=== PATIENT | female | born 1955 | race Caucasian/White ===

== ENCOUNTER 2016-07-26 09:44 | Observation (INO) | payer MEDICAID, MEDICARE ==
[2016-07-26 10:12] LABS: Hematocrit 44 % (35-47); Hemoglobin 14.1 g/dl (12.0-16.0); Mean Corpuscular HGB Conc 32 g/dl (31-36); Mean Corpuscular Hemoglobin 25 pg (27-31); Mean Corpuscular Volume 80 fL (80-97); Mean Platelet Volume 9 um3 (7.4-10.4); Red Blood Count 5.54 10^6/ul (4.0-5.4); Red Cell Distribution Width 20 % (10.5-15); White Blood Count 9.9 10^3/ul (3.5-10.8)
[2016-07-26 10:25] LABS: Albumin 4.1 g/dL (3.2-5.2); BUN/Creatinine Ratio 15.3 (8-20); C Reactive Protein 6.31 mg/L (< 5.00); EGFR African American 134.2 (>60); EGFR Non-African American 104.3 (>60); Globulin 3.1 g/dL (2-4); Magnesium 1.7 mg/dL (1.9-2.7); Potassium 3.8 mmol/L (3.5-5.0); Total Bilirubin 0.5 mg/dL (0.2-1.0); Total Protein 7.2 g/dL (6.4-8.9)
[2016-07-26 10:26] LABS: Troponin I 0.01 ng/mL (<0.04)
[2016-07-26] MEDS: NS 0.9% 1000 ML* 1,000 ML IV SCH ×3 (10:26→21:22)
--- NOTE | 2016-07-26 10:33 | RAD ---
HISTORY: Chest pain COMPARISONS: November 30, 2015 VIEWS:1: Single frontal portable view of the chest at 10:04 AM FINDINGS: LINES AND TUBES: None. CARDIOMEDIASTINAL SILHOUETTE: The cardiomediastinal silhouette is normal for portable technique. PLEURA: The costophrenic angles are sharp. No pleural abnormalities are noted. LUNG PARENCHYMA: The lungs are clear. ABDOMEN: The upper abdomen is clear. There is no subphrenic gas. BONES AND SOFT TISSUES: The patient is status post median sternotomy. IMPRESSION: NO ACTIVE CARDIOPULMONARY DISEASE.
[2016-07-26] MEDS ORDERED: Morphine INJ* 2 MG/ML 1 ML SYRINGE IV PRN (10:51)
[2016-07-26] MEDS ORDERED: Temazepam CAP* 15 MG PO PRN (10:51)
[2016-07-26] MEDS ORDERED: Acetaminophen TAB* 325 MG PO PRN (10:51)
[2016-07-26 11:03] LABS: TSH (Thyroid Stimulating Horm) 2.55 mcIU/mL (0.34-5.60)
[2016-07-26] MEDS ORDERED: Magnesium Sulfate 1 GM IV* 1 GM/100 ML BAG IV ONE (11:21)
[2016-07-26] MEDS ORDERED: Dextrose 50% Syringe 50 ML* 25 GM/50 ML SYRINGE IV PUSH PRN (11:23)
[2016-07-26] MEDS: Insulin LISPRO* 1 UNITS UNIT SUBCUT SCH ×3 (11:32→21:07)
[2016-07-26] MEDS: Aspirin TAB* 325 MG PO SCH (11:41)
--- NOTE | 2016-07-26 12:51 | ECHO ---
Patient: JEN LOPE[facility] Rec#: [id number] : 1955 Date: 07/26/2016 Age: 60y Height: 162.56 cm / 64.0 in Weight: 82.55 kg / 181.9 lbs Sex: F BSA: 1.88 Room#: ED 14 Admit Date#: 07/26/2016 Type: Inpatient Referring: Hannah Gonsalez MD Reading: Trace Park MD Auto Porter: Gabrielle Bhagat,ELENITACS,RDMS CC: Henry Cardenas MD CC: Pam Gray MD Transthoracic Echocardiogram Indication: CP BP: 105/70 HR: 57 Rhythm: Bradycardia Indications Chest Pain Findings History: CAD, PCI, HCM, DM HTN, HLD, septal myomectomy. Technical Comments: The study is technically limited due to the patient's smoking history. Completed 1215 Left Ventricle: The left ventricular chamber size is normal. Mild to moderate concentric left ventricular hypertrophy is observed. Basal interventricular septum shows moderate thickening. Mild assymetric hypertrophy of the septum is noted. Mild increased velocity (1.52 m/s) is seen. There is normal left ventricular systolic function. The estimated ejection fraction is 50-55%. Ventricular septal wall motion has a post-operative appearance. The assessment of diastolic function is non-diagnostic. Left Atrium: The left atrium is moderately dilated. Right Ventricle: The right ventricular cavity size is normal. The right ventricular global systolic function is mildly reduced. Right Atrium: The right atrial cavity size is normal. Aortic Valve: The aortic valve is trileaflet. The aortic valve leaflets are mildly thickened. There is a trace of aortic regurgitation. There is borderline aortic stenosis present. The mean gradient of the aortic valve is 6.4 mmHg. The aortic valve area, by peak velocities, is calculated at 2.6 cm2. Mitral Valve: There is mitral annular calcification. The mitral valve leaflets are mildly thickened. There is a trace of mitral regurgitation. There is no evidence of mitral stenosis. Tricuspid Valve: The tricuspid valve leaflets are normal. There is trace tricuspid regurgitation. Unable to estimate the right ventricular systolic pressure. Pulmonic Valve: The pulmonic valve appears normal. There is a trace pulmonic regurgitation. Pericardium: There is no significant pericardial effusion. Aorta: The aortic root appears normal. There is no dilatation of the aortic arch. Pulmonary Artery: The main pulmonary artery appears normal. Venous: The inferior vena cava appears normal in size. There is an approximate 50% respiratory change in the inferior vena cava dimension. Conclusions Mild to moderate concentric left ventricular hypertrophy is observed. Basal interventricular septum shows moderate thickening. Mild assymetric hypertrophy of the septum is noted. The estimated ejection fraction is 50-55%. Ventricular septal wall motion has a post-operative appearance. The left atrium is moderately dilated. No significant valvular disease: There is borderline aortic stenosis present. The aortic valve area, by peak velocities, is calculated at 2.6 cm2. There is a trace of mitral regurgitation. There is trace tricuspid regurgitation. Unable to estimate the right ventricular systolic pressure. There is a trace pulmonic regurgitation. Compared to report of study from 04/13/2016 the septal wall thickness is relatively unchanged. No significant outflow gradient is seen. The doppler information is not consistent with a specific grade. Measurements Name Value Normal Range RVIDd (AP) 2D 2.9 cm (0.9 - 2.6) RVDdMajor (2D) 4.1 cm (2.2 - 4.4) RAd ISD 4CH 4.6 cm (3.4 - 4.9) RA (A4C)W 4.6 cm (2.9 - 4.6) IVSd (2D) 1.5 cm (0.6 - 1) LVPWd (2D) 1.2 cm (0.6 - 1) LVIDd (2D) 4.5 cm (3.6 - 5.4) LVIDs (2D) 2.9 cm - LV FS (2D) 35 % (25 - 45) Aortic Annulus 2 cm (1.4 - 2.6) Ao root diameter (2D) 3.5 cm (2.1 - 3.5) Ascending Ao 3.1 cm (2.1 - 3.4) Aortic arch 2.5 cm (1.8 - 3.4) LA dimension (AP) 2D 5 cm (2.3 - 3.8) LAd ISD 4CH 5.9 cm (2.9 - 5.3) LA ISD 4CH W 5 cm (2.5 - 4.5) Name Value Normal Range LA ESV SP 4CH (A/L) 85.22 ml - LA ESV SP 2CH (A/L) 85.35 ml - LA ESV BP (A/L) 86.27 ml - LA ESV BP (A/L) index 46 ml/m2 - LA ESV SP 4CH (MOD) 80.64 ml - LA ESV SP 2CH (MOD) 76.62 ml - Name Value Normal Range MV E-wave Vmax 0.9 m/sec - MV deceleration time 258 msec - MV A-wave Vmax 1 m/sec - MV E:A ratio 0.9 ratio - P. vein S-wave Vmax 0.8 m/sec - P. vein D-wave Vmax 0.5 m/sec - P. vein A-wave duration 80 msec - LV septal e' Vmax 0.05 m/sec - LV lateral e' Vmax 0.05 m/sec - LV E:e' septal ratio 18 ratio - LV E:e' lateral ratio 18 ratio - Name Value Normal Range AV Vmax 1.8 m/sec - AV VTI 34.2 cm - AV peak gradient 13 mmHg - AV mean gradient 6.4 mmHg - LVOT diameter 2 cm - LVOT Vmax 1.5 m/sec - LVOT VTI 31.6 cm - LVOT peak gradient 9 mmHg - LVOT mean gradient 4.9 mmHg - JUMANA (continuity Vmax) 2.6 cm2 - JUMANA (continuity VTI) 3 cm2 - GRISELDA Vmax 1.1 m/sec - Name Value Normal Range RAP 8 mmHg - IVC diameter 1.3 cm - Name Value Normal Range PV Vmax 0.8 m/sec - PV peak gradient 2.6 mmHg -
[2016-07-26] MEDS: Heparin VIAL(*) 5000 UNITS/ML VIAL (FIVE THOUSAND) SUBCUT SCH ×2 (13:46→21:20)
--- NOTE | 2016-07-26 14:36 | ED ---
Mannie Pete Auryana, scribed for Desmond Peacock MD on 07/26/16 at 1014 . HPI Chest Pain - HPI Summary HPI Summary: 60 year old female LEON with chest pain (4/10) starting yesterday after working outside (14:00) worse since cardiac rehab this morning while biking. She reports the chest pain as a dull pain. She states that while at cardiac rehab this morning she had increased pain (5/10) with bilateral upper extremity heaviness and SOB. She denies any nausea, diaphoresis or any edema. HAY FARMER 324 mg ASA and 2 NTG - pain now resolved. She is on Brilinta. 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 PMHx is significant for extensive cardiac problems: heart murmur, hypertrophic cardiomyopathy (2015), CAD, HTN, stent placement (August 2015). No history of DVT/PE. - History of Current Complaint Chief Complaint: EDChestPainROMI Time Seen by Provider: 07/26/16 09:53 Hx Obtained From: Patient Onset/Duration: Started Days Ago - yesterday at 14:00, Still Present, Worse Since - this morning at cardiac rehab Time of Onset: 14:00 - yesterday Timing: Constant - but now resolved Initial Severity: Mild Current Severity: None Pain Intensity: 0 - pain resolved Pain Scale Used: 0-10 Numeric Chest Pain Location: Diffuse Character: Dull/Aching Aggravating Factor(s): Exertion - at cardiac rehab Alleviating Factor(s): NTG 123 Associated Signs and Symptoms: Positive: Shortness of Breath, Other: - BILATERAL ARM HEAVINESS. Negative: Diaphoresis, Nausea, Edema - Additional Pertinent History Primary Care Physician: DARIN - Allergy/Home Medications Allergies/Adverse Reactions: Allergies Allergy/AdvReac Type Severity Reaction Status Date / Time Sulfa Antibiotics Allergy Hives Verified 07/26/16 10:11 PMH/Surg Hx/FS Hx/Imm Hx Endocrine/Hematology History: Reports: Hx Diabetes Cardiovascular History: Reports: Hx Angina, Hx Cardiomegaly - obstructive hypertrophic cardiomyopathy, Hx Coronary Artery Disease, Hx Hypercholesterolemia , Hx Hypertension, Hx Myocardial Infarction - Stent placement August,, Hx Valvular Heart Disease, Other Cardiovascular Problems/Disorders - stent placed Denies: Hx Congestive Heart Failure Respiratory History: Denies: Hx Asthma, Hx Chronic Obstructive Pulmonary Disease (COPD) GI History: Reports: Hx Gall Bladder Disease - gall bladder removed, Hx Gastroesophageal Reflux Disease History: Denies: Hx Dialysis, Hx Renal Disease Musculoskeletal History: Reports: Hx Arthritis - right knee Sensory History: Reports: Hx Contacts or Glasses - Reading Opthamlomology History: Reports: Hx Contacts or Glasses - Reading Neurological History: Reports: Hx Headaches - Surgical History Surgery Procedure, Year, and Place: TEE. carpal tunnel. arthroscopy R knee x2 - Immunization History Date of Tetanus Vaccine: remote Date of Influenza Vaccine: 2014 Infectious Disease History: No Infectious Disease History: Denies: Traveled Outside the [place] in Last 30 Days - Family History Known Family History: Positive: Cardiac Disease - both parents, Other - leukemia - Social History Occupation: Retired Lives: With Family Alcohol Use: None Substance Use Type: Reports: None Smoking Status (MU): Light Every Day Tobacco Smoker Type: Cigarettes Amount Used/How Often: 1/2 ppd or less Length of Time of Smoking/Using Tobacco: 27 years Have You Smoked in the Last Year: Yes Review of Systems Constitutional: Negative Negative: Skin Diaphoresis Eyes: Negative ENT: Negative Positive: Chest Pain Positive: Shortness Of Breath Gastrointestinal: Negative Negative: Nausea Genitourinary: Negative Positive: Other - BILATERAL ARM HEAVINESS. Negative: Edema Skin: Negative Neurological: Negative Psychological: Normal All Other Systems Reviewed And Are Negative: Yes Physical Exam Triage Information Reviewed: Yes Vital Signs On Initial Exam: Initial Vitals Temp Pulse Resp BP Pulse Ox 98.4 F 64 16 124/72 98 07/26/16 09:46 07/26/16 09:46 07/26/16 09:46 07/26/16 09:46 07/26/16 09:46 Vital Signs Reviewed: Yes Appearance: Positive: Well-Appearing, No Pain Distress Skin: Positive: Warm, Skin Color Reflects Adequate Perfusion, Dry Head/Face: Positive: Normal Head/Face Inspection Eyes: Positive: EOMI, PAYAM ENT: Positive: Normal ENT inspection Neck: Positive: Supple, Nontender Respiratory/Lung Sounds: Positive: Clear to Auscultation, Breath Sounds Present Cardiovascular: Positive: RRR, Murmur. Negative: Leg Edema Left, Leg Edema Right Abdomen Description: Positive: Nontender, Soft Bowel Sounds: Positive: Present Musculoskeletal: Positive: Normal, Strength/ROM Intact. Negative: Edema Left, Edema Right Neurological: Positive: Normal, Sensory/Motor Intact, Alert, Oriented to Person Place, Time Psychiatric: Positive: Affect/Mood Appropriate Diagnostics - Vital Signs Vital Signs Temp Pulse Resp BP Pulse Ox 07/26/16 09:47 98.4 F 63 16 115/70 100 07/26/16 09:46 98.4 F 64 16 124/72 98 - Laboratory Lab Results: Lab Results 07/26/16 07/26/16 07/26/16 Range/Units 09:56 09:56 09:56 WBC 9.9 (3.5-10.8) 10^3/ul RBC 5.54 H (4.0-5.4) 10^6/ul Hgb 14.1 (12.0-16.0) g/dl Hct 44 (35-47) % MCV 80 (80-97) fL MCH 25 L (27-31) pg MCHC 32 (31-36) g/dl RDW 20 H (10.5-15) % Plt Count 271 (150-450) 10^3/ul MPV 9 (7.4-10.4) um3 Neut % (Auto) 63.8 (38-83) % Lymph % (Auto) 29.1 (25-47) % [place] % (Auto) 4.2 (1-9) % Eos % (Auto) 2.0 (0-6) % Baso % (Auto) 0.9 (0-2) % Absolute Neuts (auto) 6.3 (1.5-7.7) 10^3/ul Absolute Lymphs (auto) 2.9 (1.0-4.8) 10^3/ul Absolute Monos (auto) 0.4 (0-0.8) 10^3/ul Absolute Eos (auto) 0.2 (0-0.6) 10^3/ul Absolute Basos (auto) 0.1 (0-0.2) 10^3/ul Absolute Nucleated RBC 0.01 10^3/ul Nucleated RBC % 0.1 INR (Anticoag Therapy) (0.89-1.11) APTT (26.0-36.3) seconds D-Dimer, Quantitative (Less Than 230) ng/mL Sodium 135 (133-145) mmol/L Potassium 3.8 (3.5-5.0) mmol/L Chloride 103 (101-111) mmol/L Carbon Dioxide 25 (22-32) mmol/L Anion Gap 7 (2-11) mmol/L BUN 9 (6-24) mg/dL Creatinine 0.59 (0.51-0.95) mg/dL Est GFR ( Amer) 134.2 (>60) Est GFR (Non-Af Amer) 104.3 (>60) BUN/Creatinine Ratio 15.3 (8-20) Glucose 123 H (70-100) mg/dL Lactic Acid 1.9 (0.5-2.0) mmol/L Calcium 10.0 (8.6-10.3) mg/dL Magnesium 1.7 L (1.9-2.7) mg/dL Total Bilirubin 0.50 (0.2-1.0) mg/dL AST 14 (13-39) U/L ALT 11 (7-52) U/L Alkaline Phosphatase 100 (34-104) U/L Total Creatine Kinase 88 (10-223) U/L CK-MB (CK-2) 4.3 (0.6-6.3) ng/mL Troponin I 0.01 (<0.04) ng/mL C-Reactive Protein 6.31 H (< 5.00) mg/L B-Natriuretic Peptide ( - 100) pg/mL Total Protein 7.2 (6.4-8.9) g/dL Albumin 4.1 (3.2-5.2) g/dL Globulin 3.1 (2-4) g/dL Albumin/Globulin Ratio 1.3 (1-3) Lipase 21 (11.0-82.0) U/L TSH 2.55 (0.34-5.60) mcIU/mL 07/26/16 07/26/16 Range/Units 09:56 09:56 WBC (3.5-10.8) 10^3/ul RBC (4.0-5.4) 10^6/ul Hgb (12.0-16.0) g/dl Hct (35-47) % MCV (80-97) fL MCH (27-31) pg MCHC (31-36) g/dl RDW (10.5-15) % Plt Count (150-450) 10^3/ul MPV (7.4-10.4) um3 Neut % (Auto) (38-83) % Lymph % (Auto) (25-47) % [place] % (Auto) (1-9) % Eos % (Auto) (0-6) % Baso % (Auto) (0-2) % Absolute Neuts (auto) (1.5-7.7) 10^3/ul Absolute Lymphs (auto) (1.0-4.8) 10^3/ul Absolute Monos (auto) (0-0.8) 10^3/ul Absolute Eos (auto) (0-0.6) 10^3/ul Absolute Basos (auto) (0-0.2) 10^3/ul Absolute Nucleated RBC 10^3/ul Nucleated RBC % INR (Anticoag Therapy) 0.98 (0.89-1.11) APTT 30.3 (26.0-36.3) seconds D-Dimer, Quantitative < 200 (Less Than 230) ng/mL Sodium (133-145) mmol/L Potassium (3.5-5.0) mmol/L Chloride (101-111) mmol/L Carbon Dioxide (22-32) mmol/L Anion Gap (2-11) mmol/L BUN (6-24) mg/dL Creatinine (0.51-0.95) mg/dL Est GFR ( Amer) (>60) Est GFR (Non-Af Amer) (>60) BUN/Creatinine Ratio (8-20) Glucose (70-100) mg/dL Lactic Acid (0.5-2.0) mmol/L Calcium (8.6-10.3) mg/dL Magnesium (1.9-2.7) mg/dL Total Bilirubin (0.2-1.0) mg/dL AST (13-39) U/L ALT (7-52) U/L Alkaline Phosphatase (34-104) U/L Total Creatine Kinase (10-223) U/L CK-MB (CK-2) (0.6-6.3) ng/mL Troponin I (<0.04) ng/mL C-Reactive Protein (< 5.00) mg/L B-Natriuretic Peptide 47 ( - 100) pg/mL Total Protein (6.4-8.9) g/dL Albumin (3.2-5.2) g/dL Globulin (2-4) g/dL Albumin/Globulin Ratio (1-3) Lipase (11.0-82.0) U/L TSH (0.34-5.60) mcIU/mL Result Diagrams: 07/26/16 09:56 07/26/16 09:56 Lab Statement: Any lab studies that have been ordered have been reviewed, and results considered in the medical decision making process. - Radiology CXR Xray Interpretation: No Acute Changes Radiology Interpretation Completed By: Radiologist - EKG 09:42 EKG Interpretation: sinus rhythm @ 65 BPM, LBBB, no significant change from 11/29 EKG Comparison: No Significant Change - from EKG 11/30/15 Chest Pain Course/Dx - Course Course Of Treatment: NO CRITICAL CARE TIME Assessment/Plan: ADMIT HOSPITALIST STABLE - Diagnoses Provider Diagnoses: Chest pain - Provider Notifications Discussed Care Of Patient With: Dr. Gonsalez Time Discussed With Above Provider: 10:34 - agrees to admit Discharge - Discharge Plan Condition: Stable Disposition: ADMITTED TO [facility] The documentation as recorded by the Mannie dickinson Auryana accurately reflects the service I personally performed and the decisions made by me, Desmond Peacock MD.
[2016-07-26] MEDS ORDERED: amLODIPine TAB* 5 MG PO SCH (18:00)
[2016-07-26] MEDS ORDERED: Atorvastatin* 80 MG TAB PO SCH (18:00)
--- NOTE | 2016-07-26 20:25 | HP ---
HISTORY AND PHYSICAL: DATE OF ADMISSION: 07/26/16 PRIMARY CARE PROVIDER: Dr. Pam Gray. CHIEF COMPLAINT: Chest pain. HISTORY OF PRESENT ILLNESS: Corrina Terry is a 60-year-old female with history of hypertrophic cardio-myopathy, status post septal myectomy at [facility] in February 2016, as well as coronary artery disease, status post stent placement into mid LAD in August of 2015, who currently is undergoing cardiac rehab. The patient developed today chest pain while undergoing cardiac rehab on a treadmill. She stated that she felt chest heaviness and bilateral arms were very heavy. That resolved after she received nitroglycerin in the emergency department. Yesterday, she also was cleaning the house and complained of similar chest heaviness. At that point, she did not have bilateral arm pain. The discomfort was at 4/10 in intensity, loosened somewhat after she discontinued her exercise but was still present when she was going to sleep. Today, in the morning, she felt like the pain was resolved, but that recurred after she started undergoing cardiac rehab. She presented to the ED. Her initial troponin is unremarkable and her EKG is unchanged but with chronic left bundle branch block. The patient is going to be placed on observation with diagnosis of chest pain to rule out angina. PAST MEDICAL HISTORY: 1. Septal hypertrophic myopathy, status post septal myectomy in [facility] on 02/18/16. 2. History of hypertension. 3. Dyslipidemia. 4. Diabetes, type 2. 5. Left ear deafness. 6. Vitamin D deficiency. 7. Gastroesophageal reflux disease. 8. Coronary artery disease as mentioned above, status post cardiac cath and stent in the mid LAD in August of 2015. 9. History of ear drum perforation in April 2016. 10. Cholecystectomy in 1981. 11. Carpal tunnel release in 1995 and 1999. 12. Knee surgery on the right, twice in the past. 13. Perioperative septal myectomy. The patient developed atrial fibrillation and was transiently on amiodarone. The patient's most recent cardiac stress test in November of 2015 was low risk. MEDICATIONS: Include: 1. Lipitor 80 mg daily. 2. Brilinta 90 mg b.i.d. 3. Omeprazole 20 mg daily. 4. Metformin 1000 mg b.i.d. 5. Vitamin B12 1000 mcg monthly injection. 6. Aspirin 81 mg daily. 7. Metoprolol tartrate 25 mg b.i.d. 8. Oxycodone on p.r.n. basis. ALLERGIES: SULFA ANTIBIOTICS. FAMILY HISTORY: Positive for father who at the age of 64 with leukemia, but also had history of heart disease. Mother who at age of 82 with history of coronary artery disease. The patient's one sister had diabetes, one unknown cancer. Brother with history of three MIs and leukemia. SOCIAL HISTORY: The patient is a former smoker. She denies any alcohol or drug use. She lives with son, Brandon Grady, who is her healthcare proxy. REVIEW OF SYSTEMS: Please see history of present illness. All the remaining 14 systems reviewed were otherwise negative. PHYSICAL EXAMINATION GENERAL: The patient is a very pleasant 60-year-old female, who is in no acute distress. The patient is alert, awake, and oriented x3. VITAL SIGNS: Blood pressure of 105/70, heart rate of 62 and regular, respiratory rate 16, oxygen saturation 100% on room air, temperature 98.4. HEENT: Head: Atraumatic, normocephalic. Eyes: Pupils equal and reactive to light and accommodation. Oropharynx clear. Mucosa moist. NECK: Supple. No JVD. No bruits bilaterally. RESPIRATORY: Clear to auscultation bilaterally. HEART: Regular rate and rhythm with 2/6 systolic ejection murmur at the left upper sternal border. ABDOMEN: Soft, nontender. Bowel sounds present in all 4 quadrants. EXTREMITIES: There is no edema. Pulses 2+ bilaterally. There is no clubbing or cyanosis. NEURO: Speech clear. Cranial nerves II through XII grossly intact. Motor strength is 5/5 bilaterally. SKIN: On evaluation of the skin, no ecchymotic areas noted. DIAGNOSTIC STUDIES/LAB DATA: Showed white blood cell count of 9.9, hemoglobin of 14.1, hematocrit of 44, and platelets of 271. Sodium is 135, potassium 3.8, chloride 103, carbon dioxide 25, BUN 9, creatinine 0.59. Liver function tests were unremarkable. Magnesium of 1.7. TSH of 2.5. The patient's EKG showed known left bundle branch block. Portable chest x-ray, impression: "No active cardiopulmonary disease." The patient's troponin was 0.01. ASSESSMENT AND PLAN: A 60-year-old female with history of septal myectomy and history of coronary artery disease and hypertrophic cardiomyopathy, who presents with exertional chest pain. I curb-sided Dr. Toney in regards to this patient. This patient has exertional chest pain. Dr. Toney recommended that if troponins continued to be negative, the patient is to undergo a cardiac stress test. We will continue to observe the patient on telemetry monitored bed and if troponins continued to be negative, she is going to be placed on treadmill Myoview stress test in the morning. In regards to the patient's dyslipidemia, fasting lipid profile is going to be obtained in the morning. For hypertension, her beta marsha and Norvasc are going to be continued. For diabetes, insulin sliding scale is going to be continued. I will hold the patient's metformin while in the hospital. For gastroesophageal reflux disease, omeprazole is going to be continued. For DVT prophylaxis, the patient is in moderate risk and is going to be placed on heparin subcutaneously. Code status is full. TIME SPENT: Approximately 62 minutes was spent on admission of this patient, more than half that time was spent [id number] with the patient during the interview and physical exam. CC: Dr. Toney; Dr. Cardenas; Dr. Pam Gray* [id number]/[facility] #: [id number] MTDD
[2016-07-26] MEDS: Ticagrelor* 90 MG TAB PO SCH (21:20)
[2016-07-27] MEDS: NS 0.9% 1000 ML* 1,000 ML IV SCH (04:11)
[2016-07-27 05:05] LABS: HDL Cholesterol 26.9 mg/dL; Troponin I 0.02 ng/mL (<0.04)
[2016-07-27] MEDS: Heparin VIAL(*) 5000 UNITS/ML VIAL (FIVE THOUSAND) SUBCUT SCH ×2 (05:25→12:59)
[2016-07-27] MEDS: Insulin LISPRO* 1 UNITS UNIT SUBCUT SCH ×2 (07:46→13:02)
[2016-07-27] MEDS ORDERED: Omeprazole CAP* 20 MG PO SCH (09:00)
[2016-07-27] MEDS ORDERED: Aminophylline IV* 25 MG/ML 10 ML VIAL ONE (11:12)
[2016-07-27] MEDS ORDERED: Regadenoson* 0.4 MG/5 ML SYRINGE ONE (11:12)
--- NOTE | 2016-07-27 12:58 | RAD ---
Edited for charges. INDICATION: Chest pain. COMPARISON: Comparison is made with a prior myocardial perfusion stress test from December 01, 2015. Technique: A single day myocardial perfusion stress study was performed. Initially the resting study was performed. The patient was given an intravenous injection of 10.8 mCi of technetium 99m tetrofosmin and and the heart was imaged in multiple projections. The patient returned later in the day and under the direction of Dr. Park, the patient was given intervenous injection of Lexiscan. Subsequently the patient was given intravenous injection of 24.9 mCi of technetium 99m tetrofosmin and the heart was imaged in multiple projections. Images were reconstructed in the axial, sagittal and coronal planes and in a 3- D format. FINDINGS: There is hypokinesis within the septum. The left ventricular ejection fraction is calculated to be 58%. Review of the images demonstrates a moderate size area of decreased activity in the anteroseptal wall on the post pharmacologic stress images which appears improved on the resting set of images most consistent with ischemic change. No other focal abnormalities are seen. The results of this exam were discussed with the referring clinician. IMPRESSION: FINDINGS MOST CONSISTENT WITH A MODERATE SIZE AREA OF ISCHEMIA IN THE ANTEROSEPTAL WALL. THIS APPEARS TO BE A NEW FINDING FROM THE PRIOR STUDY. ASSESSMENT: Intermediate risk. Based on imaging criteria from ACC/AHA 2002 Guideline Update for the Management of Patients With Chronic Stable Angina Table 23. Noninvasive Risk Stratification. MTDD
[2016-07-27] MEDS: Ticagrelor* 90 MG TAB PO SCH (12:59)
[2016-07-27] MEDS: Aspirin TAB* 325 MG PO SCH (12:59)
[2016-07-27 15:45] VITALS: BP 151/85
--- NOTE | 2016-07-27 18:20 | CONS ---
CC: Dr. Pam Gray; Hospitalist CARDIOLOGY CONSULTATION: DATE OF CONSULT: 07/27/16 REASON FOR CONSULTATION: Chest pain and abnormal nuclear stress test. HISTORY OF PRESENT ILLNESS: Corrina Terry is a 60-year-old woman followed by my partner Dr. Henry Cardenas with a history of hypertrophic cardiomyopathy as well as atherosclerotic heart disease. The patient underwent surgical myectomy for her HOCM in February of 2016 at [facility]. She is undergoing cardiac rehab at [facility] , delayed due to problems with rides, and yesterday while using an arm machine with newly added resistance, she developed bilateral arm heaviness and some chest awareness mid chest. This is different than the angina she had in the past, which was actual substernal chest pain and different than the symptoms, she had with her obstructive cardiomyopathy which was profound dyspnea. The patient had been using multi machines at rehab including leg machines with no problem and she had had no problem with using machines with her arm until the resistance was added (twin peaks mode). It turns out that she and her family have had recent bronchitis. PAST MEDICAL HISTORY: The patient has a past medical history of coronary artery disease, cardiac catheterization in August 2015 showed a 60-70% occlusion of the mid LAD, circumflex 50-60% occlusion, right coronary artery 50% occlusion proximally, 50-60% occlusion distally. Left ventricular outflow tract gradient was 70 mmHg and she underwent a Synergy drug-eluting stent to the mid LAD lesions. Hypertrophic cardiomyopathy, status post surgical septal myectomy at [facility], hypertension, dyslipidemia, adult-onset diabetes or obesity, gastric reflux, vitamin D deficiency. PAST SURGICAL HISTORY: Incudes cholecystectomy in 1981, carpal tunnel release in 1995 and 1999, knee surgery is 2012. INPATIENT MEDICATIONS: Include: 1. Tylenol p.r.n. 2. Norvasc 2.5 mg a day. 3. Aspirin 325 mg a day. 4. Lipitor 80 mg a day. 5. Subcutaneous heparin. 6. Insulin. 7. Morphine p.r.n. 8. Prilosec. 9. Restoril. 10. Brilinta 90 mg b.i.d. As an outpatient, she was on metoprolol 25 mg b.i.d. in May. FAMILY HISTORY: Negative for early atherosclerotic disease. Her father of leukemia. Her mother of complications of diabetes. SOCIAL HISTORY: The patient is and lives with her son and daughter-in- law. 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 The patient is a former cigarette smoker. No alcohol use. REVIEW OF SYSTEMS: See history of present illness with a recent bronchitis. PHYSICAL EXAM: The patient is a 5 feet 4 inches, weighs 183 pounds with a BMI of 31, blood pressure on admission 07/26 was 124/72, pulse was 64 and regular, respiratory rate 16, oxygen saturation 98% on room air, and she has been afebrile. General Appearance: A centripitally overweight older woman in no acute distress. Psychologically, calm, cooperative, pleasant. Neurologically, awake, alert, and oriented to person, place and time. Cranial nerves II through XII grossly intact. Grossly normal sensory and motor function in the upper and lower extremities, gait not checked. Skin: No cyanosis or rashes. Her midline sternotomy scar has been keloiding, but is otherwise unremarkable. Evidence of smoking and sun damage. HEENT: Pupils are equal and round. Mucous membranes are moist. Neck without thyromegaly or lymphadenopathy. Good carotid pulses without appreciable bruits. Lungs were squeaky with fine wheezes throughout, although most predominant in the base. Coronary: S1, S2 regular with a soft systolic murmur heard along the left sternal border. It increased with end expiration. Abdomen: Flat, active bowel sounds, soft, nontender. No hepatosplenomegaly or masses appreciated. Lower extremities are free of edema. DIAGNOSTIC STUDIES/LAB DATA: A 12-lead ECG, 07/26/16, shows sinus rhythm with left bundle branch block at 65 beats a minute, unchanged from her EKG of June 13, 2016. Chest x-ray, 07/26/16, showed no active disease. Echocardiogram from 07/26/16 showed left ventricular hypertrophy, moderate thickening of the interventricular septum. Ejection fraction 50-55%. Septal dyskinesis. Aortic valve sclerosis with borderline stenosis. Aortic valve area calculated at 2.6 cm sq. Trace mitral, trace tricuspid insufficiency. No left ventricular outflow tract gradient noted. A chemical nuclear stress test done today showed a small area of fixed defect in the anterior septum with reversibility and septal dyskinesis. Ejection fraction was 58%. Labs: White count 9.9, hemoglobin 14, hematocrit 44, platelets 271, INR 0.98. Sodium 135, potassium 3.8, chloride 103, bicarb 25, glucose 123, BUN 9, creatinine 0.59, ALT of 11, troponin 0.01, troponin II 0.02. C-reactive protein 6.31. TSH 2.55. Total cholesterol 123, triglycerides 381, LDL cholesterol 20, HDL cholesterol 27. IMPRESSION: In summary, Corrina Terry is a 60-year-old woman with coronary artery disease, approximately a year post stent but on medical management for moderate disease in multiple vessels, and she also has a history of hypertrophic cardiomyopathy with a significant left ventricular outflow tract gradient, who is 5- month postsurgical septal myectomy, who developed bilateral arm and chest discomfort while using an arm ergometer with newly added resistance. Corrina's troponins were negative. Her EKG with chronic left bundle branch block is unhelpful and her stress test was reported as having an anterior wall defect but on my evaluation appears to be in the anteroseptal region. Furthermore, it is less pronounced in the images free of attenuation correction. Corrina's symptoms have a differential: -They could have been musculoskeletal from using an upper arm ergometer with resistance as she has not had symptoms since and has not had symptoms in rehab with machines using her legs or upper body without resistance. -This could be angina or she could still have left ventricular outflow tract problems or diastolic dysfunction with exertion. -This could be reflux or COPD/bronchospasm. With the surgical septal myectomy, I am not surprised if the septum shows dyskinesis on the nuclear study and I am not surprised that she has decreased perfusion in this region, but I would not expect reversible problems here. I am not seeing problems in the distribution of the LAD, and I am not seeing a large area of myocardium, and although I cannot explain it, I still have concerns that the changes we see may be related to a combination of her left bundle branch block which is notorious for giving falsely positive stress test in the region of the septum and/or her surgical myectomy. I do not feel Corrina needs a cardiac catheterization at this point in time. I think if this discomfort were related to stent restenosis or progression in her [place] coronary artery disease, it would be in a larger distribution on the nuclear images. I do think we should continue with aggressive atherosclerotic risk factor modification and medications for her hypertrophic cardiomyopathy, including rate lowering agents. I would consider resuming her beta-marsha or if, with her current wheezing, we feel this is contraindicated, then low doses of calcium channel blockers such as diltiazem, short or long-acting, could replace the metoprolol she was on in the past (metoprolol stopped 06/13/16 with a pulse rate of 64 beats per minute with concerns of bradycardia). If a low-dose calcium channel marsha is started, I would stop the Norvasc and trade it for Cardizem. She could start short-acting 30 mg b.i.d. or t.i.d. and see how she responds. The patient's recent bronchitis with active wheezing could also impact on exercise- induced symptoms and reflux would also be in the differential. She apparently is exposed to passive smoking from her family, a cardiac risk as well. [id number]/[facility] #: [id number] MTDD
--- NOTE | 2016-07-28 01:19 | DS ---
DISCHARGE SUMMARY: DATE OF ADMISSION: 07/26/16 DATE OF DISCHARGE: 07/27/16 PRIMARY CARE PROVIDER: Dr. Pam Gray. DISCHARGE DIAGNOSIS: Exertional chest pain and bilateral arm pain most likely musculoskeletal in a patient with intermediate probability cardiac stress test documented on 07/27/16. SECONDARY DIAGNOSES: 1. History of septal hypertrophic cardiomyopathy, status post septal myectomy in [facility] in 2016 in February. 2. Hypertension. 3. Dyslipidemia. 4. Diabetes type 2. 5. 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 6. Vitamin D deficiency. 7. Gastroesophageal reflux disease. 8. Coronary artery disease, status post stenting in the mid LAD in August of 2015. 9. Ear drum perforation in April 2016. 10. Cholecystectomy in 1981. 11. Carpal tunnel release in 1995 and 1999. 12. Knee surgery on the right, twice in the past. 13. One episode of atrial fibrillation postoperatively of her cardiac surgery. MEDICATIONS: At discharge include: 1. Lipitor 80 mg daily. 2. Brilinta 90 mg b.i.d. 3. Omeprazole 20 mg daily. 4. Metformin 1000 mg b.i.d. 5. Vitamin B12 1000 mcg monthly injection. 6. Aspirin 81 mg daily. 7. Metoprolol tartrate with a new decreased dose of 12.5 mg b.i.d. 8. Oxycodone on a p.r.n. basis. LABORATORY DATA: Performed during the hospital stay included: Troponins continued to be negative at 0.03 and 0.02. The patient's triglycerides were 381, cholesterol total of 123, LDL of 20, HDL of 26. Transthoracic echocardiogram showed [id number] concentric LVH. Basal interventricular septum shows moderate thickening. Mild asymmetric hypertrophy of the septum is noted. The estimated EF of 50% to 55%. Ventricular septal wall motion has a postoperative appearance. The left atrium is moderately dilated. No significant valvular disease. Comparing to prior study from March 2016, the septal wall thickness is relatively unchanged. No significant outflow gradient is seen. Nuclear medicine cardiac stress test was read by Dr. Pedersen as "findings most consistent with a moderate sized area of ischemia in the anteroseptal wall. This appears to be a new finding from the prior study." The patient's EF was noted to be 58% at that point. CONSULTATIONS DURING THE HOSPITAL STAY: Included Dr. Mccurdy from Cardiology. HOSPITALIZATION COURSE: Corrina Terry is a 60-year-old female who developed exertional chest pain when exercising at a cardiac rehab on 07/26/16. The patient stated that she was exercising her arms and there was a new increased resistance present during this particular exercise session. She developed bilateral arm pain and chest heaviness. For further details of the patient's presentation, please see history and physical dictated at admission. Shortly, the patient was admitted to telemetry monitored bed. Her troponins continued to be negative and she no longer had chest pain. She underwent a cardiac stress test, which was intermediate probability. Dr. Mccurdy saw the patient in consultation. From discussion with Dr. Mccurdy, the patient's intermediate probability cardiac stress test is most likely related to myectomy that was performed at [facility] in February of 2016. Today's study was compared to cardiac stress test performed prior to myectomy in November of 2015. In addition to that, the patient could have had muscular pain due to exercising on her upper extremities and developing bilateral upper extremity "heaviness." In addition to that, patient was noted to have coarse breath sounds on evaluation and heart rate in the 50s throughout her hospital stay despite her beta-marsha being held. At that point, I decrease the dose of patient's beta- marsha from metoprolol 25 mg b.i.d. to 12.5 mg b.i.d. Remaining medications are unchanged. The patient is recommended at discharge to follow up with Dr. Cardenas in approximately 1 to 2 weeks. The patient is recommended to follow up with primary care provider in approximately 4 to 7 days. Physical exam at discharge is unchanged from admission. CC: Dr. Pam Gray; Dr. Cardenas; Dr. Mccurdy* [id number]/[facility] #: [id number] [facility]
== END 2016-07-27 18:05 | disposition home or self-care (01) ==
LOC: ED 09:44 → MEDTELE 10:37
PROVIDERS: ADMIT Internal Medicine; ATTEND Internal Medicine
DX: R07.9 Chest pain, unspecified (principal); M79.602 Pain in left arm; M79.601 Pain in right arm; I42.2 Other hypertrophic cardiomyopathy; I10 Essential (primary) hypertension; E78.5 Hyperlipidemia, unspecified; E11.9 Type 2 diabetes mellitus without complications; Z79.84 Long term (current) use of oral hypoglycemic drugs; R06.02 Shortness of breath; R94.31 Abnormal electrocardiogram [ECG] [EKG]; E55.9 Vitamin D deficiency, unspecified; I51.7 Cardiomegaly; K21.9 Gastro-esophageal reflux disease without esophagitis; I25.10 Atherosclerotic heart disease of native coronary artery without angina pectoris; Z95.5 Presence of coronary angioplasty implant and graft; Z79.82 Long term (current) use of aspirin; Z79.899 Other long term (current) drug therapy; Z88.2 Allergy status to sulfonamides; Z87.891 Personal history of nicotine dependence
CPT/HCPCS: 36415; 71010; 78452; 80053; 80061; 82550; 82553; 83605; 83690; 83735; 83880; 84443; 84484; 85025; 85379; 85610; 85730; 86140; 93005; 93017; 93306; 96361; 96365; 96366; 96372; 99284; A9270-GY; A9502; G0378; J0280; J1644; J2785